=== PATIENT | female | born 1995 | race Caucasian/White ===

== ENCOUNTER 2022-04-29 10:41 | Outpatient (CLI) | payer BC, SELFPAY ==
[2022-04-29 11:06] LABS: Ur HCG Qualitative* Negative (Negative)
== END 2022-04-29 10:42 | disposition home or self-care (01) ==
LOC: LKVREF 10:42
PROVIDERS: Visit Provider Nurse Practitioner Family
DX: R10.9 Unspecified abdominal pain; R11.0 Nausea
CPT/HCPCS: 81025; 87338

== ENCOUNTER 2022-04-30 18:40 | Outpatient (CLI) | payer BC, SELFPAY ==
[2022-04-30 22:49] LABS: H pylori Ag Stool* Negative (Negative)
== END 2022-04-30 18:41 | disposition home or self-care (01) ==
LOC: LKVREF 18:41
PROVIDERS: Visit Provider Nurse Practitioner Family
DX: R10.9 Unspecified abdominal pain (principal)
CPT/HCPCS: 87338